=== PATIENT | male | born 1985 | race Hispanic/Latino ===

== ENCOUNTER 2019-12-11 18:23 | Emergency (ER) | payer OTHER ==
--- NOTE | 2019-12-11 19:42 | ED.PDOC ---
History of Present Illness - General Chief Complaint: Trauma Stated Complaint: R knee, R inguinal pain following a fall Time Seen by Provider: 12/11/19 18:24 Source: patient Exam Limitations: no limitations - History of Present Illness Initial Comments: The patient is a 34-year-old male presenting in custody of police. Apparently the patient ran from police and injured his right knee and strained his right groin during the attempt. The patient reports pain directly to the posterior aspect of the knee. There was no evidence of any dislocation at the time. He has injured the knee before. No pain over the MCL or LCL. Patella is aligned and there is no laceration or evidence of trauma there. Hamstrings are nontender. The patient is obviously still high and will not let me straighten or bend the leg to test the ligaments. Alignment is good at this time. He is neurovascularly intact distally. He has some mild inguinal tenderness to palpation over the previous inguinal hernia repair site. No evidence of any obvious large recurrent hernia. No pain down the testicle. No nausea or vomiting may be consistent with a bowel obstruction. Timing/Duration: 1-3 hours Severity: moderate Improving Factors: immobilization Worsening Factors: movement Associated Symptoms: denies symptoms Allergies/Adverse Reactions: Allergies NO KNOWN ALLERGY Allergy (Verified 12/11/19 18:41) Home Medications: Ambulatory Orders Omeprazole Magnesium [Prilosec Otc] 20 mg PO DAILY 12/11/19 Review of Systems - Review of Systems Constitutional: States: no symptoms reported EENTM: States: no symptoms reported Respiratory: States: no symptoms reported Cardiology: States: no symptoms reported Gastrointestinal/Abdominal: States: no symptoms reported Genitourinary: States: see HPI Musculoskeletal: States: see HPI Skin: States: no symptoms reported Neurological: States: see HPI, anxiety Endocrine: States: no symptoms reported All other Systems: No Change from Baseline Past Medical History (General) - Patient Medical History Hx Stroke: No Hx of COPD: No Hx Cardiac Disorders: No Hx Hypertension: No Hx Gastroesophageal Reflux: Yes Hx Cancer: No Surgical History: other - Vaccination History Hx Influenza Vaccination: No - Social History Hx Tobacco Use: Yes Hx Alcohol Use: No Hx Substance Use: No - Denies Hx Substance Use Treatment: No Hx Depression: No - Female History Patient is a Female of Child Bearing Age (10 -59 yrs old): No Patient : No Family Medical History - Family History Mother Family History: Unknown Living Status: Unknown Physical Exam - Physical Exam General Appearance: Alert, Anxious, No apparent distress Eye Exam: bilateral normal Ears, Nose, Throat: hearing grossly normal, normal pharynx Neck: full range of motion, supple Respiratory: lungs clear, normal breath sounds, no respiratory distress, no accessory muscle use Cardiovascular/Chest: normal peripheral pulses, regular rate, rhythm, no edema Peripheral Pulses: radial,right: 2+, radial,left: 2+, dorsalis pedis,right: 2+, dorsalis pedis,left: 2+ Gastrointestinal/Abdominal: non tender, soft Rectal Exam: deferred Extremity: no pedal edema, no calf tenderness, normal capillary refill, other - See history of present illness. 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 X-ray of the knee shows no acute bony pathology. It is difficult to get the patient to relax enough to do a good ligamentous exam. For now it appears he has a sprain right knee. He is going to be placed in a right knee immobilizer. In a couple of weeks he needs to be reevaluated to get a better exam of the ligaments. Additionally the patient strained his right inguinal hernia repair site. Will likely be sore for a couple of weeks. He can take 2 Aleve twice a day with food to help reduce pain from both. ER warnings are given. He will be released to police custody. [email or web address] [id number] - Results/Orders Results/Orders: X-ray of the right knee shows no obvious fracture or dislocation. Departure - Departure Clinical Impression: Right knee sprain Qualifiers: Encounter type: initial encounter Involved ligament of knee: unspecified ligament Qualified Code(s): S83.91XA - Sprain of unspecified site of right knee, initial encounter Inguinal strain Qualifiers: Encounter type: initial encounter Laterality: right Qualified Code(s): S76.211A - Strain of adductor muscle, fascia and tendon of right thigh, initial encounter Disposition: Discharge to Home or Self Care Condition: Fair Departure Forms: ED Discharge - Pt. Copy, Patient Portal Self Enrollment Instructions: DI for Trauma Diet: regular diet Activity: increase activity as tolerated Home Medications: Ambulatory Orders Omeprazole Magnesium [Prilosec Otc] 20 mg PO DAILY 12/11/19 Additional Instructions: The patient is a 34-year-old male presenting to the emergency room in custody after having injured his knee and right groin apparently in an attempt to get away from the police. X-ray of the knee shows no acute bony pathology. It is difficult to get the patient to relax enough to do a good ligamentous exam. For now it appears he has a sprain right knee. He is going to be placed in a right knee immobilizer. In a couple of weeks he needs to be reevaluated to get a better exam of the ligaments. Additionally the patient strained his right inguinal hernia repair site. Will likely be sore for a couple of weeks. He can take 2 Aleve twice a day with food to help reduce pain from both. ER warnings are given. He will be released to police custody.
--- NOTE | 2019-12-11 19:59 | RAD ---
EXAM DESCRIPTION: Knee,Right Complete, 3 views CLINICAL HISTORY: 34 years Male, knee pain after arrest COMPARISON: None. FINDINGS: No fracture or dislocation. Soft tissues are unremarkable. IMPRESSION: No acute abnormality. Electronically signed by: Enrique Delarosa MD 12/11/2019 7:58 PM CDT
[2019-12-11 20:46] VITALS: BP 117/71; TEMP 98.4; O2SAT 98
== END 2019-12-11 20:15 | disposition home or self-care (01) ==
LOC: ER 18:23
DX: S83.91XA Sprain of unspecified site of right knee, initial encounter (principal); S76.211A Strain of adductor muscle, fascia and tendon of right thigh, initial encounter; F17.200 Nicotine dependence, unspecified, uncomplicated; Y35.819A Legal intervention involving manhandling, unspecified person injured, initial encounter; Y92.9 Unspecified place or not applicable